=== PATIENT | female | born 1950 | race Caucasian/White ===

== ENCOUNTER 2017-07-21 08:06 | Emergency (ER) | payer MEDICARE, BC ==
[~2017-07-21] VITALS: Ht 172.7 cm; Wt 104.0 kg
[~2017-07-21 08:06] MED LIST: CEPH500 PO; NAPR-729 PO; PYRI200T4 PO
[2017-07-21 08:08] VITALS: BP 213/85; PULSE 93; RESP 18; TEMP 98.1; O2SAT 96
[2017-07-21 08:30] VITALS: BP 165/86; PULSE 86; RESP 18; O2SAT 97
[2017-07-21] MEDS ORDERED: SILVER SULFADIAZINE 1% CR 50 GM JAR TOPICAL ONE (08:30)
[2017-07-21] MEDS ORDERED: oxyCODONE/ACETAMINOPHEN 5 MG/325 MG TAB PO ONE (08:30)
[2017-07-21] MEDS ORDERED: ASPI-516 CHEW (08:32)
[2017-07-21] MEDS ORDERED: PERC5TAB12 PO (08:34)
[2017-07-21] MEDS ORDERED: SILV1CRE20 TOPICAL (08:35)
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
[2017-07-21] MEDS ORDERED: CEPH-460 PO (09:08)
== END 2017-07-21 09:23 | disposition home or self-care (01) ==
LOC: PHED 08:06
DX: T21.21XA Burn of second degree of chest wall, initial encounter (principal); X10.0XXA Contact with hot drinks, initial encounter
CPT/HCPCS: 16020